=== PATIENT | female | born 1990 | race Caucasian/White ===

== ENCOUNTER 2017-08-13 20:03 | Emergency (ER) | payer BC ==
[~2017-08-13] VITALS: Ht 165.1 cm; Wt 61.8 kg
[2017-08-13 20:07] VITALS: BP 121/61; PULSE 100; TEMP 101.7
[2017-08-13] MEDS ORDERED: PRENATAL PO (20:10)
[2017-08-13] MEDS ORDERED: TAMIFLU 75MG75 MG PO (20:10)
[2017-08-13] MEDS ORDERED: OSCAL 500 TAB500 MG PO (20:11)
== END 2017-08-13 21:40 | disposition home or self-care (01) ==
LOC: COL.ER 20:03
DX: O99.511 Diseases of the respiratory system complicating pregnancy, first trimester (principal); J11.1 Influenza due to unidentified influenza virus with other respiratory manifestations; Z3A.09 9 weeks gestation of pregnancy

== ENCOUNTER 2018-03-13 10:59 | Inpatient (IN) | payer BC ==
[~2018-03-13] VITALS: Ht 165.1 cm; Wt 74.5 kg
[~2018-03-13 10:59] MED LIST: OSCAL 500 TAB500 MG PO; PRENATAL PO; TAMIFLU 75MG75 MG PO
[2018-03-21 19:30] VITALS: BP 107/59; PULSE 87; TEMP 98.3
[2018-03-21 20:00] VITALS: BP 114/59; PULSE 81
[2018-03-21 20:09] LABS: BASO % 0.3 % (0.0-2.0); EOS # 0.1 (0.0-0.7); EOS % 1.2 % (0-4.0); GRAN # 6.1 (1.4-6.5); GRAN % 68.9 % (42.2-75.2); HEMOGLOBIN 11.5 g/dl (12.5-16.0); LYMPH # 1.8 (1.2-3.4); LYMPH % 19.7 % (20.0-51.0); MEAN CELL VOLUME 95 fl (80.0-100.0); MEAN CORPUSCULAR HEMOGLOBIN 33 pg (27.0-31.0); MEAN CORPUSCULAR HGB CONC 35 g/dl (33.0-37.0); MEAN PLATELET VOLUME 10.9 fl (7.4-10.4); MONO # 0.8 (0.1-0.6); MONO % 9.4 % (1.7-9.3); PLATELET COUNT 207 K/mm3 (130-400); RED BLOOD COUNT 3.47 M/mm3 (4.10-5.30); REDCELL DISTRIBUTION WIDTH-CV 12.9 % (11.5-14.5)
[2018-03-21 20:10] LABS: HEMATOCRIT 32.9 % (37.0-47.0)
[2018-03-21 20:30] VITALS: BP 102/61; PULSE 89
[2018-03-21 21:00] VITALS: BP 109/61; PULSE 77
[2018-03-21 21:30] VITALS: BP 119/60; PULSE 85
[2018-03-21 22:00] VITALS: BP 107/64; PULSE 81; TEMP 98.4
[2018-03-22] VITALS (48 sets, daily range): BP systolic 82–144; BP diastolic 47–99; PULSE 62–101; TEMP 97.5–98.3
[2018-03-23 09:15] VITALS: BP 114/64; PULSE 91; TEMP 97.8
[2018-03-23 16:58] VITALS: BP 106/62; PULSE 86; TEMP 97.9
[2018-03-23 20:20] VITALS: BP 108/60; PULSE 95; TEMP 98.7
[2018-03-24] MEDS ORDERED: IBU800 M1 PO (08:34)
[2018-03-24] MEDS ORDERED: PERCOCET 325 MG1 TA2 PO (08:34)
== END 2018-03-24 12:45 | disposition home or self-care (01) | DRG 766 ==
LOC: LDR 10:59 → OB 03-22 15:00
PROVIDERS: Student in an Organized Health Care Education/Training Program
PROC: 3E0P7VZ Introduction of Hormone into Female Reproductive, Via Natural or Artificial Opening (ICD-10-PCS; 2018-03-21)
PROC: 10D00Z1 Extraction of Products of Conception, Low, Open Approach (ICD-10-PCS; principal; 2018-03-22)
PROC: 3E033VJ Introduction of Other Hormone into Peripheral Vein, Percutaneous Approach (ICD-10-PCS; 2018-03-22)
DX: O48.0 Post-term pregnancy (principal); Z3A.40 40 weeks gestation of pregnancy; Z37.0 Single live birth; O76 Abnormality in fetal heart rate and rhythm complicating labor and delivery; O62.0 Primary inadequate contractions; O77.0 Labor and delivery complicated by meconium in amniotic fluid
CPT/HCPCS: J0690; J1885; J2405; J2590; J7120

== ENCOUNTER → 2020-08-25 | Outpatient (CLI) | payer BC ==
[~2020-08-25] MED LIST changes: +IBU800 M1 PO; +PERCOCET 325 MG1 TA2 PO
== END ==
LOC: ZCOL.LAB 08:00
DX: Z20.822 Contact with and (suspected) exposure to COVID-19 (principal)

== ENCOUNTER 2020-08-28 05:23 | Inpatient (IN) | payer BC ==
[2020-08-28] VITALS (20 sets, daily range): BP systolic 80–132; BP diastolic 37–63; PULSE 74–104; TEMP 97.6–98.8
[~2020-08-28] VITALS: Ht 165.1 cm; Wt 76.8 kg
--- NOTE | 2020-08-28 05:30 | NUR ---
Pt arrives to unit ambulatory for section. Pt changed into gown, oriented to room, bed in low and locked position, call light within reach. Pt reports good movement, denies contractions or vaginal bleeding. US and toco explained and applied. Vital signs obtained. 18G IV started in right wrist, admission labs obtained off IV start. Lactated Ringers infusing to gravity. Consents reviewed with patient and spouse.
[2020-08-28 06:06] LABS: BASO % 0.4 % (0.0-2.0); EOS # 0.2 (0.0-0.7); EOS % 1.9 % (0-4.0); GRAN # 5.4 (1.4-6.5); GRAN % 63.5 % (42.2-75.2); HEMOGLOBIN 10.7 g/dl (12.5-16.0); LYMPH # 2.1 (1.2-3.4); LYMPH % 24.5 % (20.0-51.0); MEAN CELL VOLUME 93 fl (80.0-100.0); MEAN CORPUSCULAR HEMOGLOBIN 31 pg (27.0-31.0); MEAN CORPUSCULAR HGB CONC 34 g/dl (33.0-37.0); MEAN PLATELET VOLUME 11.1 fl (7.4-10.4); MONO # 0.8 (0.1-0.6); MONO % 9.1 % (1.7-9.3); PLATELET COUNT 237 K/mm3 (130-400); RED BLOOD COUNT 3.41 M/mm3 (4.10-5.30); REDCELL DISTRIBUTION WIDTH-CV 12.9 % (11.5-14.5)
[2020-08-28 06:07] LABS: HEMATOCRIT 31.6 % (37.0-47.0)
[2020-08-28] MEDS ORDERED: OSCAL 500 TAB500 MG PO (06:19)
--- NOTE | 2020-08-28 06:40 | NUR ---
PT HERE FOR REPEAT . IV STARTED IN RIGHT WRIST BY KARMA WOO. IV OF LR INFUSING WITHOUT DIFFICULTY. ASSESSMENT COMPLETED. CONSENTS SIGNED. FHT'S WITH MODERATE VARIABILITY AND ACCELS.
--- NOTE | 2020-08-28 08:02 | NUR ---
PT AMBULATES TO SUITE. POSITIONED SITTING ON BED. SPINAL PLACED BY EPI MENDEZ. PT POSITIONED LYING DOWN WITH WEDGE UNDER RIGHT HIP. FHT'S 142. BANGURA CATHETER PLACED WITH CLEAR YELLOW URINE RETURNED. ABDOMEN PREPPED WITH DURAPREP. DELIVERY OF FEMALE BY DR ALLEN AND DR CANO.
--- NOTE | 2020-08-28 08:30 | NUR ---
PT TO PACU AFTER DISCHARGE FROM OPERATING ROOM. AWAKE AND ALERT. FEELING NO PAIN AT THIS TIME. FUNDUS FIRM WITH MINIMAL BLEEDING OBSERVED. ASSESSMENT COMPLETE.
--- NOTE | 2020-08-28 09:10 | NUR ---
PT TO ROOM AFTER DISCHARGE FROM PACU. AWAKE AND ALERT. NUMB FROM WAIST DOWN. NO PAIN AT THIS TIME. FUNDUS FIRM WITH MINIMAL BLEEDING. WATER AND CRACKERS GIVEN.
[2020-08-29 00:15] VITALS: BP 100/63; PULSE 74; TEMP 97.8
[2020-08-29 04:00] VITALS: BP 105/64; PULSE 75; TEMP 98.6
[2020-08-29 07:00] VITALS: BP 105/71; PULSE 80; TEMP 97.9
== END 2020-08-29 16:35 | disposition home or self-care (01) | DRG 787 ==
LOC: OB 05:23
PROVIDERS: ADMIT Student in an Organized Health Care Education/Training Program
PROC: 10D00Z1 Extraction of Products of Conception, Low, Open Approach (ICD-10-PCS; principal; 2020-08-28)
DX: O34.211 Maternal care for low transverse scar from previous cesarean delivery (principal); O33.0 Maternal care for disproportion due to deformity of maternal pelvic bones; Z37.0 Single live birth; O36.5930 Maternal care for other known or suspected poor fetal growth, third trimester, not applicable or unspecified; Z3A.39 39 weeks gestation of pregnancy
CPT/HCPCS: J0690; J1100; J1885; J2370; J2405; J2590; J7120

== ENCOUNTER → 2021-02-19 | Outpatient (CLI) | payer BC | LOC: MC.RAD 06:49 | DX: N63.20 Unspecified lump in the left breast, unspecified quadrant (principal) ==